=== PATIENT | female | born 1935 | race Two or more races ===

== ENCOUNTER 2018-10-22 13:03 | Inpatient (IN) | payer MEDICARE, OTHER ==
[~2018-10-22] VITALS: Ht 160 cm; Wt 49.4 kg
--- NOTE | 2018-10-22 19:30 | NUR ---
GPS RN-NOTES: ADMISSION NOTES: ADMITTED A 83 YR OLD FEMALE, FROM [facility], PT IS ON 5150 FOR DTS. PER HOLD, PT PRESENTS TO THE ED WITH SI AND SUICIDAL PLAN TO STAB HERSELF IN THE CHEST. PT HAS BEEN SUFFERING FROM MAJOR DEPRESSIVE DISORDER WITH GENERALIZED ANXIETY DISORDER AND SEVERE INSOMNIA. PER FAMILY PT HAS BEEN VERY DEPRESSED FOR AT LEAST TWO MONTHS AND HAS LOST 10 POUNDS DUE TO POOR APPETITE. PT HAS NO OUTPATIENT PSYCHIATRIST. UPON FACE TO FACE ASSESSMENT, PATIENT IS ALERT AND ORIENTED X2-3, ANXIOUS, DEPRESSED, AMBULATORY. PT WAS ADVISED OF THE HOLD. PT'S RIGHTS DISCUSSED GUIDE TO PRESCRIPTION MEDICATIONS PROVIDED. PT REFUSED TO SIGN CONSENT FORMS. V/S WNL. NO COMPLAIN OF PAIN AND DISCOMFORT AT THIS TIME, NO ACUTE DISTRESS NOTED, BELONGINGS WERE INVENTORIED AND CHECKED FOR CONTRABAND. PT. IS UNDER THE PSYCHIATRIC CARE OF DR. SANTIAGO ORDERS OBTAINED, AND UNDER THE MEDICAL CARE OF GARETT SANDHU. SKIN ASSESSMENT DONE. WOUND CONSULT TRIGGERED. BED LOCKED AND PLACED ON LOWEST POSITION TO MAINTAIN SAFETY. FALL PRECAUTIONS IMPLEMENTED. ALL NEEDS ATTENDED AND ANTICIPATED. WILL CONTINUE TO MONITOR Q15 MINS. FOR SAFETY AND BEHAVIOR.
[2018-10-22] MEDS ORDERED: ZOLPIDEM TARTRATE 5 MG TABLET PO PRN (20:00)
[2018-10-22] MEDS ORDERED: MAGNESIUM HYDROXIDE 30 ML UDC PO PRN (20:00)
[2018-10-22] MEDS ORDERED: ACETAMINOPHEN 325 MG TABLET PO PRN (20:00)
[2018-10-22] MEDS ORDERED: BLOOD SUGAR DIAGNOSTIC 1 EACH STRIP IN ONE (20:00)
[2018-10-22] MEDS ORDERED: CEPH500C2 PO (21:14)
[2018-10-22] MEDS ORDERED: TELM80TA2 PO (21:14)
[2018-10-22] MEDS ORDERED: HYDR-4076 PO (21:14)
[2018-10-23] MEDS ORDERED: DEXTROSE 50%-WATER 50 ML DISP.SYRIN IV PRN (01:00)
[2018-10-23] MEDS ORDERED: INSULIN REGULAR, HUMAN 100 UNIT/ML 3 ML VIAL SQ PRN (01:00)
[2018-10-23 01:14] VITALS: BP 145/73
[2018-10-23 07:23] LABS: CHOLESTEROL 125 mg/dL (<200); HDL CHOLESTEROL 61 mg/dL (40-60); LDL 56 mg/dL (0-99); TRIGLYCERIDES 42 mg/dL (30-150)
[2018-10-23 07:30] LABS: ALANINE AMINOTRANSFERASE 17 U/L (12-78); ALKALINE PHOSPHATASE 49 U/L (46-116); ASPARTATE AMINOTRANSFERASE 25 U/L (15-37); BILIRUBIN,TOTAL 0.5 mg/dL (0.2-1.0); CALCIUM, SERUM 8.8 mg/dL (8.5-10.1); CARBON DIOXIDE 30 mmol/L (21-32); CHLORIDE 108 mmol/L (98-107); CREATININE 0.8 mg/dL (0.6-1.3); GLUCOSE 85 mg/dL (74-106); POTASSIUM 3.9 mmol/L (3.5-5.1); SODIUM SERUM 143 mmol/L (136-145); TOTAL PROTEIN, SERUM 6.4 g/dL (6.4-8.2); UREA NITROGEN, BLOOD 24 mg/dL (7-18)
[2018-10-23] MEDS: BLOOD SUGAR DIAGNOSTIC 1 EACH STRIP IN SCH ×4 (07:30→21:28)
[2018-10-23 08:00] VITALS: BP 129/76
[2018-10-23] MEDS ORDERED: VENLAFAXINE XR 75 MG CAP.SR.24H PO SCH (11:00)
[2018-10-23] MEDS: VENLAFAXINE XR 37.5 MG CAP.SR.24H PO SCH (11:54)
--- NOTE | 2018-10-23 12:14 | NUR ---
Initial discharge plan: Pt currently lives with her daughter, Zandra, and her son-in-law at [address], [address], [place] [address]; [phone]. Per daughter Staci [[phone]], pts emergency contact, pt would be returning back to her previous place of residence or have the option of moving in with her daughter Bessie in [place], [place]. Furthermore, family is open to exploring other long-term living arrangements if appropriate, and utilizing in-home health services ([facility]) for home health. SW will work with the pt, pt family, and the MD regarding appropriate discharge planning. SW will form a safe and proper discharge.
--- NOTE | 2018-10-23 12:21 | NUR ---
acid conditioning worker called and spoke with pts emergency contact, daughter Staci Eddy [[phone]] for further information. Staci states that pt began having symptoms of depression when she became less independent. Staci reports that pt has had severe hoarding behaviors in the past and lacks healthy hygiene. Pt lived on her own until about 6 years ago when she lost her apartment due to no longer being able to afford rent. At that time, Staci states that her depressive symptoms intensified. Staci also reports that pt has dementia and can display aggressive behaviors towards others when she is agitated. Per Staci, pt would be returning back to her previous place of residence at [address] [place] [address], [address], [place] [address]; [phone] with her daughter Zandra and son-in law or has the option of moving in with her daughter Bessie in [place], [place]. Furthermore, family is open to exploring more appropriate long-term living arrangements if needed, including accessing in-home health services ([facility]) for home health. SW will work with the pt, pt family, and the MD regarding appropriate discharge planning. SW will form a safe and proper discharge.
[2018-10-23 16:00] VITALS: BP 152/71
[2018-10-23] MEDS ORDERED: ROSU10TA2 PO (16:13)
[2018-10-23] MEDS ORDERED: DILT180C92 PO (16:13)
[2018-10-23] MEDS ORDERED: MAGN400T6 PO (16:13)
[2018-10-23] MEDS ORDERED: BROM3DRO OP (16:13)
[2018-10-23] MEDS ORDERED: LEVO50TA8 PO (16:13)
[2018-10-23] MEDS ORDERED: HYDR-4076 PO (16:13)
[2018-10-23] MEDS ORDERED: VORT5TAB PO (16:13)
[2018-10-23] MEDS ORDERED: WARF-58 PO (16:13)
[2018-10-23] MEDS ORDERED: PRED5DRO16 OP (16:13)
[2018-10-23] MEDS ORDERED: ASCO500T9 PO (16:13)
[2018-10-23] MEDS ORDERED: POTA10TA15 PO (16:13)
[2018-10-23] MEDS ORDERED: DONE10TA44 PO (16:13)
[2018-10-23] MEDS ORDERED: DORZ10DR13 RIGHTEYE (16:13)
[2018-10-23] MEDS ORDERED: MIRT15TA3 PO (16:13)
[2018-10-23] MEDS ORDERED: OLME40TA12 PO (16:13)
[2018-10-23] MEDS ORDERED: WARF4TAB72 PO (16:13)
[2018-10-23] MEDS ORDERED: HYDR25TA4 PO (16:13)
[2018-10-23] MEDS ORDERED: VORTIOXETINE HYDROBROMIDE 5 MG PO SCH (16:30)
[2018-10-23] MEDS: POTASSIUM CHLORIDE 10 MEQ TABLET.SA PO SCH (17:07)
[2018-10-23] MEDS: DONEPEZIL 5 MG TABLET PO SCH (17:07)
[2018-10-23] MEDS: MAGNESIUM OXIDE 400 MG TABLET PO SCH (17:07)
[2018-10-23] MEDS: hydrALAZINE HCL 25 MG TABLET PO SCH (17:07)
[2018-10-23] MEDS: DILTIAZEM HCL CD 180 MG PO SCH (17:08)
[2018-10-23] MEDS: prednisoLONE ACET 1% OPHT DROP 5 ML BOTTLE OP SCH (17:13)
[2018-10-23] MEDS: TIMOLOL MAL/DORZOLAM HCL OPHTH 10 ML BOTTLE RIGHTEYE SCH (17:17)
[2018-10-23] MEDS: LEVOTHYROXINE SODIUM 50 MCG TABLET PO SCH (17:18)
[2018-10-23] MEDS: MIRTAZAPINE SOLUTAB 15 MG/UDTABLET TAB.RAPDIS PO SCH (17:18)
[2018-10-23] MEDS: LOSARTAN POTASSIUM 50 MG TABLET PO SCH (17:34)
[2018-10-23] MEDS: WARFARIN SODIUM 5 MG TABLET PO SCH (18:46)
--- NOTE | 2018-10-23 19:05 | NUR ---
RECEIVED PATIENT ASLEEP IN BED. BED ALARM ON.
[2018-10-23 20:21] VITALS: BP 131/56
[2018-10-23] MEDS: QUETIAPINE FUMARATE 25 MG TABLET PO SCH (21:29)
--- NOTE | 2018-10-23 21:35 | NUR ---
BLOOD SUGAR FINGERSTICK IS 82, NO INSULIN GIVEN PER SLIDING COVERAGE, ASYMPTOMATIC, PATIENT HAD 125ML OF CRANBERRY JUICE. WENT TO THE BATHROOM,WALKED WITH VERY MINIMAL ASSISTANCE, STEADY GAIT. VOIDED, WALKED BACK TO BED. PATIENT IS CALM AND COOPERATIVE. BED ALARM ACTIVATED. BED IN LOW AND LOCKED POSITION.
--- NOTE | 2018-10-23 21:35 | NUR ---
PATIENT IS NOW AWAKE, LYING IN BED, AND ABLE TO TAKE HER HS MEDS. PATIENT IS VERY CALM AND COOPERATIVE. NO COMPLAIN OF PAIN. BED ALARM ON. BED IN LOW AND LOCKED POSITION.
[2018-10-24] MEDS: prednisoLONE ACET 1% OPHT DROP 5 ML BOTTLE OP SCH ×4 (05:35→17:06)
[2018-10-24 08:00] VITALS: BP 135/52
[2018-10-24] MEDS: BLOOD SUGAR DIAGNOSTIC 1 EACH STRIP IN SCH ×4 (08:52→21:24)
[2018-10-24] MEDS: LEVOTHYROXINE SODIUM 50 MCG TABLET PO SCH (08:53)
[2018-10-24] MEDS: DONEPEZIL 5 MG TABLET PO SCH (08:53)
[2018-10-24] MEDS: VENLAFAXINE XR 37.5 MG CAP.SR.24H PO SCH (08:53)
[2018-10-24] MEDS: MIRTAZAPINE SOLUTAB 15 MG/UDTABLET TAB.RAPDIS PO SCH (08:53)
[2018-10-24] MEDS: ASCORBIC ACID 500 MG TABLET PO SCH (08:53)
[2018-10-24] MEDS: MAGNESIUM OXIDE 400 MG TABLET PO SCH (08:53)
[2018-10-24] MEDS: POTASSIUM CHLORIDE 10 MEQ TABLET.SA PO SCH (08:53)
[2018-10-24] MEDS: ATORVASTATIN 10 MG TABLET PO SCH (08:53)
[2018-10-24] MEDS: TIMOLOL MAL/DORZOLAM HCL OPHTH 10 ML BOTTLE RIGHTEYE SCH ×2 (08:54→17:06)
[2018-10-24] MEDS: HYDROCHLOROTHIAZIDE 25 MG TABLET PO SCH (08:55)
[2018-10-24] MEDS: LOSARTAN POTASSIUM 50 MG TABLET PO SCH (08:55)
[2018-10-24] MEDS: hydrALAZINE HCL 25 MG TABLET PO SCH ×2 (08:55→17:09)
[2018-10-24] MEDS: DILTIAZEM HCL CD 180 MG PO SCH (08:55)
[2018-10-24 16:00] VITALS: BP 134/58
[2018-10-24] MEDS: WARFARIN SODIUM 5 MG TABLET PO SCH (17:08)
[2018-10-24 20:00] VITALS: BP 120/72
[2018-10-24] MEDS: QUETIAPINE FUMARATE 25 MG TABLET PO SCH (21:23)
[2018-10-24] MEDS: LORAZEPAM 0.5 MG TABLET PO PRN (23:54)
[2018-10-25] MEDS: prednisoLONE ACET 1% OPHT DROP 5 ML BOTTLE OP SCH ×4 (06:04→17:09)
[2018-10-25] MEDS: BLOOD SUGAR DIAGNOSTIC 1 EACH STRIP IN SCH ×4 (07:58→21:50)
[2018-10-25 08:00] VITALS: BP 138/60
[2018-10-25] MEDS: POTASSIUM CHLORIDE 10 MEQ TABLET.SA PO SCH (08:43)
[2018-10-25] MEDS: MAGNESIUM OXIDE 400 MG TABLET PO SCH (08:43)
[2018-10-25] MEDS: DONEPEZIL 5 MG TABLET PO SCH (08:43)
[2018-10-25] MEDS: VENLAFAXINE XR 37.5 MG CAP.SR.24H PO SCH (08:43)
[2018-10-25] MEDS: LEVOTHYROXINE SODIUM 50 MCG TABLET PO SCH (08:43)
[2018-10-25] MEDS: ATORVASTATIN 10 MG TABLET PO SCH (08:43)
[2018-10-25] MEDS: ASCORBIC ACID 500 MG TABLET PO SCH (08:44)
[2018-10-25] MEDS: MIRTAZAPINE SOLUTAB 15 MG/UDTABLET TAB.RAPDIS PO SCH (08:44)
[2018-10-25] MEDS: LOSARTAN POTASSIUM 50 MG TABLET PO SCH (08:44)
[2018-10-25] MEDS: HYDROCHLOROTHIAZIDE 25 MG TABLET PO SCH (08:44)
[2018-10-25] MEDS: hydrALAZINE HCL 25 MG TABLET PO SCH ×2 (08:45→16:41)
[2018-10-25] MEDS: DILTIAZEM HCL CD 180 MG PO SCH (08:45)
[2018-10-25] MEDS: TIMOLOL MAL/DORZOLAM HCL OPHTH 10 ML BOTTLE RIGHTEYE SCH ×2 (08:47→16:47)
[2018-10-25 16:00] VITALS: BP 159/71
[2018-10-25] MEDS: WARFARIN SODIUM 5 MG TABLET PO SCH (16:42)
[2018-10-25 20:09] VITALS: BP 161/73
[2018-10-25] MEDS: QUETIAPINE FUMARATE 25 MG TABLET PO SCH (21:50)
[2018-10-25] MEDS: LORAZEPAM 0.5 MG TABLET PO PRN (21:52)
[2018-10-26] MEDS: prednisoLONE ACET 1% OPHT DROP 5 ML BOTTLE OP SCH ×4 (05:33→18:12)
--- NOTE | 2018-10-26 06:30 | NUR ---
GPS RN NOTE: PATIENT WOKE UP, CONFUSED, DISORGANIZED, UNCOOPERATIVE, PACING, UNSTEADY GAIT, REDIRECTED THE PATIENT, ESCORTED THE PATIENT BACK TO BED, WILL CONTINUE TO MONITOR Q15 MINS FOR SAFETY
[2018-10-26 08:00] VITALS: BP 155/77
[2018-10-26] MEDS: BLOOD SUGAR DIAGNOSTIC 1 EACH STRIP IN SCH (09:05)
[2018-10-26] MEDS: LEVOTHYROXINE SODIUM 50 MCG TABLET PO SCH (09:06)
[2018-10-26] MEDS: DONEPEZIL 5 MG TABLET PO SCH (09:07)
[2018-10-26] MEDS: HYDROCHLOROTHIAZIDE 25 MG TABLET PO SCH (09:07)
[2018-10-26] MEDS: VENLAFAXINE XR 37.5 MG CAP.SR.24H PO SCH (09:07)
[2018-10-26] MEDS: MAGNESIUM OXIDE 400 MG TABLET PO SCH (09:09)
[2018-10-26] MEDS: DILTIAZEM HCL CD 180 MG PO SCH (09:09)
[2018-10-26] MEDS: MIRTAZAPINE SOLUTAB 15 MG/UDTABLET TAB.RAPDIS PO SCH (09:09)
[2018-10-26] MEDS: ATORVASTATIN 10 MG TABLET PO SCH (09:09)
[2018-10-26] MEDS: POTASSIUM CHLORIDE 10 MEQ TABLET.SA PO SCH (09:10)
[2018-10-26] MEDS: ASCORBIC ACID 500 MG TABLET PO SCH (09:10)
[2018-10-26] MEDS: hydrALAZINE HCL 25 MG TABLET PO SCH ×2 (09:10→16:27)
[2018-10-26] MEDS: LOSARTAN POTASSIUM 50 MG TABLET PO SCH (09:10)
[2018-10-26] MEDS: TIMOLOL MAL/DORZOLAM HCL OPHTH 10 ML BOTTLE RIGHTEYE SCH ×2 (09:14→16:29)
--- NOTE | 2018-10-26 11:03 | NUR ---
GPS/RN-NOTES RECEIVED T.O ORDER FROM DR. SALEEM TO D/C ACCU CHECK AND TO ORDER PT/INR TODAY. NOTED AND CARRIED OUT.
--- NOTE | 2018-10-26 13:13 | NUR ---
GPS/RN-NOTES DR. SALEEM MADE AWARE OF PATIENT INR RESULT TODAY WITH T.O ORDER TO CONTINUE COUMADIN 7.5MG P.O TODAY AND INR TOMORROW ALSO ORDERED UA . NOTED AND CARRIED OUT.
[2018-10-26 16:00] VITALS: BP 116/62
[2018-10-26] MEDS: WARFARIN SODIUM 5 MG TABLET PO SCH (16:28)
[2018-10-26 17:33] LABS: APPEARANCE,URINE CLEAR (CLEAR); BILIRUBIN,URINE NEGATIVE (NEGATIVE); BLOOD, URINE 2+ Ery/uL (NEGATIVE); COLOR,URINE YELLOW (YELLOW); KETONES,URINE NEGATIVE (NEGATIVE); LEUKOCYTE ESTERASE ,URINE NEGATIVE (NEGATIVE); NITRITE, URINE NEGATIVE (NEGATIVE); PROTEIN,URINE NEGATIVE (NEGATIVE); UGLUCOSE NEGATIVE (NEGATIVE); UROBILINOGEN,URINE 0.2 EU/dL (0.2)
[2018-10-26 18:15] LABS: SQUAMOUS EPITHELIAL CELL,UR None Seen /HPF (None Seen)
[2018-10-26 18:16] LABS: BACTERIA,URINE Few /HPF (None Seen); WBC,URINE 0-2 /HPF (0-3)
--- NOTE | 2018-10-26 19:30 | NUR ---
GPS RN NOTE, RECEIVED PATIENT AWAKE AND IN BED, NO S/S OR COMPLAINTS OF PAIN AT THIS TIME. PATIENT IS DISPLAYING NO S/S OF APPARENT DISTRESS AT THIS TIME. PATIENT BREATHING IS UNLABORED WITH EQUAL RISE AND FALL OF THE CHEST. PATIENT IS ALERT AND ORIENTED X 1-2 ON ROOM AIR WITH A SPO2 OF 96 %. PATIENT IS TURKMEN SPEAKING. PATIENT IS MED COMPLAINT, DISORGANIZED, ANXIOUS, COOPERATIVE, AND NEEDS REORIENTATION. PATIENT DENIES SUICIDE AND HOMICIDAL IDEATIONS AT THIS TIME. PATIENT ASSISTED WITH TURNING AND REPOSITIONING Q2HR AND PRN FOR COMFORT AND CIRCULATION. PATIENT HAS NO NEEDS AT THIS TIME. PATIENT EDUCATED ON THE USE OF THE CALL JORGE. PATIENT BED SIDE RAILS ARE UP X 2 FOR SAFETY, BED IS LOCKED, AND LOW WILL CONTINUE TO MONITOR AND MAINTAIN SAFETY.
[2018-10-26 19:55] VITALS: BP 112/49
[2018-10-26] MEDS: QUETIAPINE FUMARATE 25 MG TABLET PO SCH (21:11)
[2018-10-27] MEDS: prednisoLONE ACET 1% OPHT DROP 5 ML BOTTLE OP SCH ×4 (06:06→18:05)
[2018-10-27 08:00] VITALS: BP 107/57
[2018-10-27] MEDS: hydrALAZINE HCL 25 MG TABLET PO SCH ×2 (09:00→17:00)
[2018-10-27] MEDS: LOSARTAN POTASSIUM 50 MG TABLET PO SCH (09:00)
[2018-10-27] MEDS: LEVOTHYROXINE SODIUM 50 MCG TABLET PO SCH (09:24)
[2018-10-27] MEDS: POTASSIUM CHLORIDE 10 MEQ TABLET.SA PO SCH (09:26)
[2018-10-27] MEDS: VENLAFAXINE XR 75 MG CAP.SR.24H PO SCH (09:26)
[2018-10-27] MEDS: ASCORBIC ACID 500 MG TABLET PO SCH (09:26)
[2018-10-27] MEDS: MAGNESIUM OXIDE 400 MG TABLET PO SCH (09:26)
[2018-10-27] MEDS: ATORVASTATIN 10 MG TABLET PO SCH (09:26)
[2018-10-27] MEDS: HYDROCHLOROTHIAZIDE 25 MG TABLET PO SCH (09:26)
[2018-10-27] MEDS: DILTIAZEM HCL CD 180 MG PO SCH (09:27)
[2018-10-27] MEDS: TIMOLOL MAL/DORZOLAM HCL OPHTH 10 ML BOTTLE RIGHTEYE SCH ×2 (09:27→17:59)
--- NOTE | 2018-10-27 14:52 | NUR ---
PC Hearing Notification: GOPAL called the pts daughter, Staci Eddy [[phone]], and informed her that the pt will be having a PC hearing the following day. She stated that she would like to attend the meeting and the SW provided her with the appropriate information.
[2018-10-27 16:00] VITALS: BP 108/54
[2018-10-27] MEDS: WARFARIN SODIUM 5 MG TABLET PO SCH (18:01)
--- NOTE | 2018-10-27 19:30 | NUR ---
GPS RN NOTE, RECEIVED PATIENT AWAKE AND IN BED, NO S/S OR COMPLAINTS OF PAIN AT THIS TIME. PATIENT IS DISPLAYING NO S/S OF APPARENT DISTRESS AT THIS TIME. PATIENT BREATHING IS UNLABORED WITH EQUAL RISE AND FALL OF THE CHEST. PATIENT IS ALERT AND ORIENTED X 1-2 ON ROOM AIR WITH A SPO2 OF 98%. PATIENT IS MARSHALLESE SPEAKING. PATIENT IS MED COMPLAINT, DISORGANIZED, ANXIOUS, COOPERATIVE, AND NEEDS REORIENTATION. PATIENT DENIES SUICIDE AND HOMICIDAL IDEATIONS AT THIS TIME. PATIENT ASSISTED WITH TURNING AND REPOSITIONING Q2HR AND PRN FOR COMFORT AND CIRCULATION. PATIENT HAS NO NEEDS AT THIS TIME. PATIENT EDUCATED ON THE USE OF THE CALL JORGE. PATIENT BED SIDE RAILS ARE UP X 2 FOR SAFETY, BED IS LOCKED, AND LOW WILL CONTINUE TO MONITOR AND MAINTAIN SAFETY.
[2018-10-27] MEDS: QUETIAPINE FUMARATE 25 MG TABLET PO SCH (21:25)
[2018-10-27 21:40] VITALS: BP 149/59
[2018-10-28] MEDS ORDERED: HYDROCHLOROTHIAZIDE 25 MG TABLET PO SCH
[2018-10-28] MEDS: prednisoLONE ACET 1% OPHT DROP 5 ML BOTTLE OP SCH ×4 (06:50→17:52)
[2018-10-28 09:09] VITALS: BP 118/61
[2018-10-28] MEDS: ATORVASTATIN 10 MG TABLET PO SCH (09:48)
[2018-10-28] MEDS: LEVOTHYROXINE SODIUM 50 MCG TABLET PO SCH (09:49)
[2018-10-28] MEDS: VENLAFAXINE XR 75 MG CAP.SR.24H PO SCH (09:49)
[2018-10-28] MEDS: MAGNESIUM OXIDE 400 MG TABLET PO SCH (09:49)
[2018-10-28] MEDS: HYDROCHLOROTHIAZIDE 25 MG TABLET PO SCH (09:50)
[2018-10-28] MEDS: ASCORBIC ACID 500 MG TABLET PO SCH (09:50)
[2018-10-28] MEDS: DILTIAZEM HCL CD 180 MG PO SCH (09:51)
[2018-10-28] MEDS: POTASSIUM CHLORIDE 10 MEQ TABLET.SA PO SCH (09:51)
[2018-10-28] MEDS: TIMOLOL MAL/DORZOLAM HCL OPHTH 10 ML BOTTLE RIGHTEYE SCH ×2 (09:55→17:52)
--- NOTE | 2018-10-28 10:30 | NUR ---
DR. GUILLERMO HERE AND MADE AWARE OF ELEVATED INR-REQUESTS THAT PT. RECEIVE CURRENT DOSE OF COUMADIN 7.5 MG PO.RN VERIFIED WITH
--- NOTE | 2018-10-28 12:38 | NUR ---
GROUP NOTE Goal: Patient will attend group being held today from 11am-11:45 am in the activities room and participate and/or actively listen to peers and be respectful. Intervention: SW facilitated group session with patients regarding their support system. SW explored ways in which her daughters show they care and are supportive. SW used empathetic listening and validated her health struggles. SW thanked pt. for disclosing. Response: Patient was agreeable to participating in group session. Patient was alert and oriented and remained calm and cooperative throughout session. Patient made appropriate eye contact throughout group session. Resident discussed three daughters whom are all very supportive. Per resident, she lives with her eldest daughter. Per resident she feels she can count on them especially now that she has been dealing with health issues. The resident stated, �thank you for listening and being empathetic, sometimes we just need to vent�. Plan: Patient will be invited to attend next healthcare social worker group session held.
--- NOTE | 2018-10-28 13:30 | NUR ---
DTR. HERE AND ACCESS SERVICE REPRESENTATIVE REVIEWED MED ADM. WITH DTR.
[2018-10-28 16:00] VITALS: BP 151/66
[2018-10-28] MEDS: LOSARTAN POTASSIUM 50 MG TABLET PO SCH (17:51)
[2018-10-28] MEDS: WARFARIN SODIUM 5 MG TABLET PO SCH (17:55)
--- NOTE | 2018-10-28 18:28 | NUR ---
NO CHANGE IN STATUS.
[2018-10-28 20:15] VITALS: BP 151/64
[2018-10-28] MEDS: QUETIAPINE FUMARATE 25 MG TABLET PO SCH (21:18)
[2018-10-29] MEDS: prednisoLONE ACET 1% OPHT DROP 5 ML BOTTLE OP SCH ×4 (05:53→17:38)
--- NOTE | 2018-10-29 07:45 | NUR ---
GPS/RN-NOTES AT 0745 CALLED [facility] FOR DR. GUILLERMO REGARDING PATIENT INR OF 4.1O.WILL AWAITING FOR CALL BACK.
--- NOTE | 2018-10-29 07:55 | NUR ---
DR. GUILLERMO NOTIFIED ABOUT THE INR OF 4.10 AND PT OF 40.4 AND ORDERED HOLD COUMADIN FOR TODAY (10/29/18) AND TOMORROW (10/30/18). HE ORDERED DAILY PT/INR AND TO START COUMADIN 6 MG DAILY AND TO START ON FRIDAY (10/31/18).
[2018-10-29 08:00] VITALS: BP 158/68
[2018-10-29] MEDS: LEVOTHYROXINE SODIUM 50 MCG TABLET PO SCH (08:53)
[2018-10-29] MEDS: ASCORBIC ACID 500 MG TABLET PO SCH (08:54)
[2018-10-29] MEDS: LOSARTAN POTASSIUM 50 MG TABLET PO SCH (08:54)
[2018-10-29] MEDS: ATORVASTATIN 10 MG TABLET PO SCH (08:54)
[2018-10-29] MEDS: VENLAFAXINE XR 75 MG CAP.SR.24H PO SCH (08:54)
[2018-10-29] MEDS: MAGNESIUM OXIDE 400 MG TABLET PO SCH (08:54)
[2018-10-29] MEDS: TIMOLOL MAL/DORZOLAM HCL OPHTH 10 ML BOTTLE RIGHTEYE SCH ×2 (08:55→17:38)
[2018-10-29] MEDS: DILTIAZEM HCL CD 180 MG PO SCH (08:55)
[2018-10-29] MEDS: hydrALAZINE HCL 25 MG TABLET PO SCH (12:32)
[2018-10-29 16:00] VITALS: BP 135/81
[2018-10-29 20:00] VITALS: BP 148/75
[2018-10-29] MEDS: QUETIAPINE FUMARATE 25 MG TABLET PO SCH (21:36)
[2018-10-30] MEDS: prednisoLONE ACET 1% OPHT DROP 5 ML BOTTLE OP SCH ×4 (06:15→18:10)
[2018-10-30 08:00] VITALS: BP_SYST 143; BP_SYST 151; BP_DIAS 71; BP_DIAS 87
[2018-10-30] MEDS: HYDROCHLOROTHIAZIDE 25 MG TABLET PO SCH (08:06)
[2018-10-30] MEDS: POTASSIUM CHLORIDE 10 MEQ TABLET.SA PO SCH (08:06)
[2018-10-30] MEDS: ATORVASTATIN 10 MG TABLET PO SCH (08:07)
[2018-10-30] MEDS: ASCORBIC ACID 500 MG TABLET PO SCH (08:07)
[2018-10-30] MEDS: LEVOTHYROXINE SODIUM 50 MCG TABLET PO SCH (08:07)
[2018-10-30] MEDS: DILTIAZEM HCL CD 180 MG PO SCH (08:08)
[2018-10-30] MEDS: MAGNESIUM OXIDE 400 MG TABLET PO SCH (08:08)
[2018-10-30] MEDS: LOSARTAN POTASSIUM 50 MG TABLET PO SCH (08:09)
[2018-10-30] MEDS: VENLAFAXINE XR 75 MG CAP.SR.24H PO SCH (08:10)
[2018-10-30] MEDS: TIMOLOL MAL/DORZOLAM HCL OPHTH 10 ML BOTTLE RIGHTEYE SCH ×2 (08:17→17:00)
--- NOTE | 2018-10-30 10:28 | NUR ---
GOPAL called the pts daughter, Staci Eddy [[phone]], and informed her that the pts psychiatrist did not feel comfortable discharging the pt today and therefore would like to reevaluate her state on Friday and aim for a discharge on Friday. GOPAL stated that she would call back on Friday.
[2018-10-30 16:00] VITALS: BP 150/73
[2018-10-30] MEDS: MAG HYDROX/AL HYDROX/SIMETH 30 ML UDC PO PRN (19:15)
[2018-10-30 20:00] VITALS: BP 132/63
[2018-10-30] MEDS: QUETIAPINE FUMARATE 25 MG TABLET PO SCH (21:24)
[2018-10-31] MEDS: prednisoLONE ACET 1% OPHT DROP 5 ML BOTTLE OP SCH ×4 (06:12→17:30)
[2018-10-31 08:00] VITALS: BP_SYST 145; BP_SYST 155; BP_DIAS 62; BP_DIAS 74
[2018-10-31] MEDS: LEVOTHYROXINE SODIUM 50 MCG TABLET PO SCH (09:41)
[2018-10-31] MEDS: ATORVASTATIN 10 MG TABLET PO SCH (09:41)
[2018-10-31] MEDS: VENLAFAXINE XR 75 MG CAP.SR.24H PO SCH (09:41)
[2018-10-31] MEDS: ASCORBIC ACID 500 MG TABLET PO SCH (09:41)
[2018-10-31] MEDS: MAGNESIUM OXIDE 400 MG TABLET PO SCH (09:41)
[2018-10-31] MEDS: TIMOLOL MAL/DORZOLAM HCL OPHTH 10 ML BOTTLE RIGHTEYE SCH ×2 (09:42→17:30)
[2018-10-31] MEDS: LOSARTAN POTASSIUM 50 MG TABLET PO SCH (09:42)
[2018-10-31] MEDS: DILTIAZEM HCL CD 180 MG PO SCH (09:43)
[2018-10-31] MEDS: hydrALAZINE HCL 25 MG TABLET PO SCH (12:56)
[2018-10-31 16:00] VITALS: BP 151/70
[2018-10-31] MEDS: WARFARIN SODIUM 2 MG TABLET PO SCH (17:37)
[2018-10-31 20:00] VITALS: BP 143/56
[2018-10-31] MEDS: QUETIAPINE FUMARATE 25 MG TABLET PO SCH (21:04)
[2018-11-01] MEDS: prednisoLONE ACET 1% OPHT DROP 5 ML BOTTLE OP SCH ×4 (05:31→17:45)
[2018-11-01 08:00] VITALS: BP 151/65
[2018-11-01] MEDS: VENLAFAXINE XR 75 MG CAP.SR.24H PO SCH (09:05)
[2018-11-01] MEDS: ATORVASTATIN 10 MG TABLET PO SCH (09:05)
[2018-11-01] MEDS: MAG HYDROX/AL HYDROX/SIMETH 30 ML UDC PO PRN (09:05)
[2018-11-01] MEDS: ASCORBIC ACID 500 MG TABLET PO SCH (09:05)
[2018-11-01] MEDS: LEVOTHYROXINE SODIUM 50 MCG TABLET PO SCH (09:05)
[2018-11-01] MEDS: MAGNESIUM OXIDE 400 MG TABLET PO SCH (09:06)
[2018-11-01] MEDS: DILTIAZEM HCL CD 180 MG PO SCH (09:13)
[2018-11-01] MEDS: LOSARTAN POTASSIUM 50 MG TABLET PO SCH (09:13)
[2018-11-01] MEDS: TIMOLOL MAL/DORZOLAM HCL OPHTH 10 ML BOTTLE RIGHTEYE SCH ×2 (09:14→17:03)
[2018-11-01 16:00] VITALS: BP 145/64
[2018-11-01] MEDS: WARFARIN SODIUM 2 MG TABLET PO SCH (17:13)
[2018-11-01 19:52] VITALS: BP 158/70
[2018-11-01 20:00] VITALS: BP 158/70
[2018-11-01] MEDS: QUETIAPINE FUMARATE 25 MG TABLET PO SCH (21:25)
[2018-11-02] MEDS: prednisoLONE ACET 1% OPHT DROP 5 ML BOTTLE OP SCH ×4 (05:43→17:38)
[2018-11-02 08:00] VITALS: BP 152/64
[2018-11-02] MEDS: ASCORBIC ACID 500 MG TABLET PO SCH (10:54)
[2018-11-02] MEDS: POTASSIUM CHLORIDE 10 MEQ TABLET.SA PO SCH (10:55)
[2018-11-02] MEDS: DILTIAZEM HCL CD 180 MG PO SCH (10:55)
[2018-11-02] MEDS: ATORVASTATIN 10 MG TABLET PO SCH (10:55)
[2018-11-02] MEDS: LEVOTHYROXINE SODIUM 50 MCG TABLET PO SCH (10:55)
[2018-11-02] MEDS: MAGNESIUM OXIDE 400 MG TABLET PO SCH (10:56)
[2018-11-02] MEDS: VENLAFAXINE XR 75 MG CAP.SR.24H PO SCH (10:56)
[2018-11-02] MEDS: LOSARTAN POTASSIUM 50 MG TABLET PO SCH (10:56)
[2018-11-02] MEDS: TIMOLOL MAL/DORZOLAM HCL OPHTH 10 ML BOTTLE RIGHTEYE SCH ×2 (11:02→17:37)
[2018-11-02] MEDS: HYDROCHLOROTHIAZIDE 25 MG TABLET PO SCH (11:05)
--- NOTE | 2018-11-02 15:00 | NUR ---
GROUP NOTE: SW prompted pt to participate in group session on this present day discussing "current issues you are having while being on a hold." Pt is unable to participate in group due to her Dementia; pt unable to engage in a meaningful conversation and is not appropriate for group or able to follow directions in a group setting.
--- NOTE | 2018-11-02 15:17 | NUR ---
Staci Nunu [[phone]], pts daughter, called the SW and the SW informed her that the pt is going to be discharged the following day. SW received the appropriate information for the discharge and coordinated with the pts daughter for pharmacy picking technician.
[2018-11-02 16:00] VITALS: BP 144/77
[2018-11-02] MEDS ORDERED: WARFARIN SODIUM 2 MG TABLET PO SCH (17:00)
[2018-11-02 19:54] VITALS: BP 154/85
[2018-11-02] MEDS: QUETIAPINE FUMARATE 25 MG TABLET PO SCH (21:13)
[2018-11-03] MEDS: prednisoLONE ACET 1% OPHT DROP 5 ML BOTTLE OP SCH ×3 (06:03→14:28)
[2018-11-03] MEDS: LEVOTHYROXINE SODIUM 50 MCG TABLET PO SCH (07:34)
[2018-11-03] MEDS: DILTIAZEM HCL CD 180 MG PO SCH (08:20)
[2018-11-03] MEDS: TIMOLOL MAL/DORZOLAM HCL OPHTH 10 ML BOTTLE RIGHTEYE SCH (08:20)
[2018-11-03] MEDS: LOSARTAN POTASSIUM 50 MG TABLET PO SCH (08:20)
[2018-11-03] MEDS: ATORVASTATIN 10 MG TABLET PO SCH (08:21)
[2018-11-03] MEDS: ASCORBIC ACID 500 MG TABLET PO SCH (08:21)
[2018-11-03] MEDS: VENLAFAXINE XR 75 MG CAP.SR.24H PO SCH (08:21)
[2018-11-03] MEDS: MAGNESIUM OXIDE 400 MG TABLET PO SCH (08:21)
[2018-11-03 09:06] VITALS: BP 150/73
[2018-11-03 11:12] VITALS: BP 145/68
[2018-11-03] MEDS: MAG HYDROX/AL HYDROX/SIMETH 30 ML UDC PO PRN (11:12)
[2018-11-03] MEDS: hydrALAZINE HCL 25 MG TABLET PO SCH (11:12)
--- NOTE | 2018-11-03 14:48 | NUR ---
GPS/RN - Discharge Note Lisa Alberto, 83 year old female, discharged to home with family in stable condition. Patient compliant with medications, cooperative with treatment plans. Patient is alert and oriented x 3, ambulatory with walker, denies pain, not in any form of distress, afebrile, skin is intact. Patient denies suicidal ideation or homicidal ideation and instructed to go to the nearest ER if developing SI/HI. Behavior improved, psychiatric treatment plans met, medical treatment plans deferred for continual monitoring. Medications reconciled with Dr. Nobles and Dr. Guerrero. Written prescriptions faxed to pt's preferred pharmacy ([facility] T [phone] F [phone]). Daughter Staci (T [phone]) made aware that prescriptions will be ready for pickle pumper by 14:00. Reviewed discharge instructions with pt and daughter Staci, both verbalized full understanding. Daughter Staci made aware that pt needs to f/u with PCP, Psychiatrist and to go to a Coumadin clinic for Coumadin management. Discharge papers signed and copy provided. Returned all personal belongings to patient and she deny any missing items. Patient left the unit at 14:30 via private car.
--- NOTE | 2018-11-03 15:04 | NUR ---
Discharge Note: Pt was discharged to her daughter Nichole baca located at [address] [place] [address]; ([phone]). Pt was picked up by her daughter, Staci ([phone]), around 2pm. Pts prescriptions were faxed to the appropriate pharmacy before pts discharge. Upon discharge, the pt appeared to be in a depressed mood and presented with a calm affect. Pt denied both suicidal and homicidal ideation as well as auditory and visual hallucinations. Pt will seek psychiatric services at [facility] located at [address] [place] [address]; , a fax of records was sent to: . Pt will also continue to be under the care of her obstetrics teacher, Dr. Etienne, located at [address] [place] [id number]; .
== END 2018-11-03 14:30 | disposition home or self-care (01) | DRG 885 ==
LOC: GPS 18:37
PROVIDERS: ADMIT Psychiatry & Neurology Psychiatry; ATTEND Internal Medicine
DX: F33.3 Major depressive disorder, recurrent, severe with psychotic symptoms (principal); I11.0 Hypertensive heart disease with heart failure; E11.65 Type 2 diabetes mellitus with hyperglycemia; R45.851 Suicidal ideations; I50.32 Chronic diastolic (congestive) heart failure; Z68.1 Body mass index [BMI] 19.9 or less, adult; R62.7 Adult failure to thrive; E03.9 Hypothyroidism, unspecified; Z95.2 Presence of prosthetic heart valve; R42 Dizziness and giddiness; E11.42 Type 2 diabetes mellitus with diabetic polyneuropathy; H93.19 Tinnitus, unspecified ear; I25.10 Atherosclerotic heart disease of native coronary artery without angina pectoris; E78.5 Hyperlipidemia, unspecified
CPT/HCPCS: 36415; 70450-TC; 80053-TC; 80061-TC; 81000-TC; 82962-TC; 85610-TC; 87081-TC; J1815